=== PATIENT | male | born 1995 | race Caucasian/White ===

== ENCOUNTER 2020-02-11 09:39 | Outpatient (CLI) | payer OTHER ==
[2020-02-11 13:23] LABS: Hemoglobin 16.5 g/dL (14.0-18.0); Mean Corpuscular HGB CONC 34.3 g/dL (32.0-36.0); Mean Corpuscular Hemoglobin 29.7 pg (27.0-31.0); Mean Corpuscular Volume 86.4 fL (78.0-98.0); Mean Platelet Volume 9.2 fL (7.4-10.4); Platelet Count 306 thou/uL (130-400); RBC Distribution Width 12.6 % (11.5-14.5); Red Blood Cell (RBC) Count 5.55 mill/uL (4.70-6.10); White Blood Cell (WBC) Count 9.4 thou/uL (4.8-10.8)
[2020-02-11 13:33] LABS: PTT 31.3 sec (22.9-36.1); Prothrombin Time 13.5 sec (12.0-14.7)
[2020-02-11 13:40] LABS: Anion Gap 13 mmol/L (10-20); BUN (Urea Nitrogen) 13 mg/dL (8.9-20.6); Calc. Creatinine Clearance 0 mL/min (70-130); Calcium 9.8 mg/dL (7.8-10.44); Carbon Dioxide 24 mmol/L (22-29); Chloride 105 mmol/L (98-107); Estimated GFR-MDRD Greater than 90; Glucose 87 mg/dL (70-105); Sodium 138 mmol/L (136-145)
[2020-02-12 12:17] LABS: SARS-CoV-2 MS2 Positive; SARS-CoV-2 N Gene Negative; SARS-CoV-2 S Gene Negative; SARS-CoV-2 orf1ab Negative
--- NOTE | 2020-02-14 11:48 | EKG ---
Test Reason : Blood Pressure : / mmHG Vent. Rate : 166 BPM Atrial Rate : 166 BPM P-R Int : 082 ms QRS Dur : 084 ms QT Int : 316 ms P-R-T Axes : 064 043 058 degrees QTc Int : 525 ms Sinus tachycardia with short ID Otherwise normal ECG Confirmed by RENUKA GRAHAM ([id number]) on 02/14/2020 11:48:17 AM Referred By: RAY Confirmed By:RENUKA GRAHAM
--- NOTE | 2020-02-14 11:48 | EKG ---
Test Reason : Blood Pressure : / mmHG Vent. Rate : 112 BPM Atrial Rate : 112 BPM P-R Int : 148 ms QRS Dur : 088 ms QT Int : 344 ms P-R-T Axes : 047 037 053 degrees QTc Int : 469 ms Sinus tachycardia Otherwise normal ECG Confirmed by RENUKA GRAHAM ([id number]) on 02/14/2020 11:48:35 AM Referred By: RAY Confirmed By:RENUKA GRAHAM
== END 2020-02-11 09:40 | disposition home or self-care (01) ==
LOC: LABBT 09:39
PROVIDERS: ATTEND Neurological Surgery
DX: Z01.818 Encounter for other preprocedural examination (principal); Z11.59 Encounter for screening for other viral diseases; M54.16 Radiculopathy, lumbar region
CPT/HCPCS: 80048; 85027; 85610; 85730; 87635; 93005; 93010; U0003

== ENCOUNTER 2020-02-16 07:47 | Day surgery (SDC) | payer OTHER ==
[2020-02-15 10:03] VITALS: BMI 39.5
[2020-02-16] MEDS ORDERED: Midazolam HCl 2 mg/2 ml Vial ONE (08:22)
[2020-02-16] MEDS ORDERED: Clindamycin/D5W 900 mg/50 ml Premix Bag ONE (09:02)
[2020-02-16] MEDS ORDERED: Levofloxacin 500 mg/D5W 100 ml Premix Bag ONE (09:02)
[2020-02-16] MEDS ORDERED: HYDROmorphone 0.5 MG/0.5 ML SYRINGE ONE (11:38)
[2020-02-16] MEDS ORDERED: Fentanyl 100 MCG/2 ML VIAL ONE ×2 (11:38→13:25)
[2020-02-16] MEDS ORDERED: Lidocaine 1% PF 5 ML VIAL ONE (13:04)
[2020-02-16] MEDS ORDERED: Metoprolol Tartrate 5 MG/5 ML VIAL ONE (13:04)
[2020-02-16] MEDS ORDERED: Dexamethasone 20 MG/5 ML VIAL ONE (13:04)
[2020-02-16] MEDS ORDERED: Glycopyrrolate 0.2 MG/ML 5 ML SYRINGE ONE (13:04)
[2020-02-16] MEDS ORDERED: Esmolol 100 MG/10 ML VIAL ONE (13:04)
[2020-02-16] MEDS ORDERED: Rocuronium Bromide 10 MG/ML (10ML VIAL) ONE (13:04)
[2020-02-16] MEDS ORDERED: PROPOFOL 200 MG/20 ML VIAL ONE (13:04)
[2020-02-16] MEDS ORDERED: Ondansetron PF 4 MG/2 ML Vial ONE (13:04)
[2020-02-16] MEDS ORDERED: HYDROcodone/Acetaminophen 5/325 mg Tablet ONE (13:33)
[2020-02-16] MEDS ORDERED: Acetaminophen/Codeine 30-300mg Tablet ONE (14:37)
[2020-02-16] MEDS ORDERED: tiZANidine HCl 4 MG TAB ONE (15:03)
--- NOTE | 2020-02-16 17:42 | OP ---
DATE OF PROCEDURE: 02/16/2020 TELEPHONE ADVICE NURSE: Apolinar. PROCEDURE PERFORMED: Right L5-S1 microdiskectomy. DESCRIPTION OF PROCEDURE: The patient was brought to the operating room and intubated. He was rolled in a prone position on gel-filled chest rolls. An incision was made exposing L5 and S1 and levels were confirmed by x-ray. 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 The procedure was quite difficult given his large body habitus. The disk was incised and removed and the disk space itself entered and debrided of additional fragments. A complete decompression of right S1 was achieved. The wound was extensively irrigated and MAC hemostasis was secured. The wound was then closed in anatomic layers. Job ID: [id number]
== END 2020-02-16 16:10 | disposition home or self-care (01) ==
LOC: SDC 07:47
PROVIDERS: ATTEND Neurological Surgery
PROC: 0ST20ZZ Resection of Lumbar Vertebral Disc, Open Approach (ICD-10-PCS; principal; 2020-02-16)
DX: M51.17 Intervertebral disc disorders with radiculopathy, lumbosacral region (principal); Z79.899 Other long term (current) drug therapy; Z88.0 Allergy status to penicillin
CPT/HCPCS: 76000; J0690; J1100; J1170; J1956; J2001; J2250; J2405; J2704; J3010; J3370; J3490